=== PATIENT | female | born 1985 | race Caucasian/White ===

== ENCOUNTER 2017-05-24 20:50 | Emergency (ER) | payer SELFPAY ==
[2017-05-24] MEDS ORDERED: Azithromycin 250 MG Tab PO ONE (21:44)
[2017-05-24] MEDS ORDERED: cefTRIAXone 500 MG Vial IM ONE (21:44)
--- NOTE | 2017-05-24 22:03 | EDM.PDOC ---
ED HPI GENERAL MEDICAL PROBLEM - General Chief Complaint: Abdominal Pain Stated Complaint: ILLNESS Time Seen by Provider: 05/24/17 21:20 Source of Information: Reports: Patient History Limitations: Reports: No Limitations - History of Present Illness INITIAL COMMENTS - FREE TEXT/NARRATIVE: 32-year-old female who is just passing through [facility], on the run with her boyfriend who was arrested and put in prison, is in the emergency room to be checked for STDs. She found out a week ago that her boyfriend has had gonorrhea. She's had some vague but persistent lower abdominal discomfort, no fevers or chills, no nausea or vomiting. No new vaginal discharge, she says she "always has some". Onset: Unknown/Unsure Severity: Mild Associated Symptoms: Reports: Cough (Mild cough over the past several days) Lower Abdomen Pain Score (Numeric/FACES): 8 - Related Data Allergies Allergy/AdvReac Type Severity Reaction Status Date / Time aspirin Allergy Hives Verified 05/24/17 21:14 latex Allergy Hives Verified 05/24/17 21:14 Home Meds: Home Meds NK [No Known Home Meds] 05/24/17 [History] Past Medical History Respiratory History: Reports: Croup Gastrointestinal History: Reports: Other (See Below) Other Gastrointestinal History: elivated liver enzymes [employer] History: Reports: Musculoskeletal History: Reports: Back Pain, Chronic Psychiatric History: Reports: Addiction, Anxiety, Bipolar, Depression, Panic Attack, PTSD, Suicide Attempt Immunologic History: Reports: Other (See Below) Other Immunologic History: Hep C - Infectious Disease History Infectious Disease History: Reports: Chicken Pox, MRSA - Past Surgical History Female Surgical History: Reports: Tubal Ligation, Other (See Below) Other Female Surgeries/Procedures: cyst on ovary Social & Family History - Tobacco Use Smoking Status *Q: Current Every Day Smoker Years of Tobacco use: 20 Packs/Tins Daily: 0.5 Used Tobacco, but Quit: No Second Hand Smoke Exposure: Yes - Caffeine Use Caffeine Use: Reports: Soda - Recreational Drug Use Recreational Drug Use: Yes Drug Use in Last 12 Months: Yes Recreational Drug Type: Reports: Methamphetamine Recreational Drug Use Frequency: Weekly ED ROS GENERAL - Review of Systems Review Of Systems: See Below Constitutional: Denies: Fever, Chills, Malaise Respiratory: Reports: Cough. Denies: Shortness of Breath Cardiovascular: Denies: Chest Pain GI/Abdominal: Reports: Abdominal Pain. Denies: Nausea, Vomiting : Denies: Dysuria, Flank Pain Skin: Reports: No Symptoms Neurological: Denies: Headache ED EXAM, GENERAL - Physical Exam Exam: See Below Exam Limited By: No Limitations General Appearance: Alert, No Apparent Distress Eye Exam: Bilateral Eye: Normal Inspection Head: Atraumatic Respiratory/Chest: No Respiratory Distress GI/Abdominal: Normal Bowel Sounds, Soft, Non-Tender (Female) Exam: Normal External Exam, Adnexal Tenderness (She does have some adnexal and uterine tenderness to palpation), Other (Labs were taken for gonorrhea and chlamydia). No: Cervical Discharge, Cervical Fluid, Cervical Lesions Course - Vital Signs Last Recorded V/S: Last Vital Signs Temp 96.8 F 05/24/17 21:24 Pulse 119 H 05/24/17 21:24 Resp 16 05/24/17 21:24 BP 114/76 05/24/17 21:24 Pulse Ox 99 05/24/17 21:24 - Orders/Labs/Meds Orders: Active Orders 24 hr Category Date Time Status C TRACHOMATIS/N GONORRHOEA SDA [REF] Stat Lab 05/24/17 21:45 Received Meds: Medications Discontinued Medications Generic Name Dose Route Start Last Admin Trade Name Eliza PRN Reason Stop Dose Admin Azithromycin 1,000 mg 05/24/17 21:44 05/24/17 21:54 Zithromax PO 05/24/17 21:45 1,000 mg ONETIME ONE Administration Ceftriaxone Sodium 500 mg 05/24/17 21:44 05/24/17 22:00 Rocephin IM 05/24/17 21:45 500 mg ONETIME ONE Administration - Re-Assessments/Exams Free Text/Narrative Re-Assessment/Exam: 05/24/17 22:21 Gonorrhea and Chlamydia were sent to lab. Patient was given 500 mg of IM Rocephin along with 1000 mg of oral Zithromax. She will call for lab results in the next 72 hours, or return sooner if worsening or concerns. Departure - Departure Time of Disposition: 22:14 Disposition: Home, Self-Care 01 Condition: Good Clinical Impression: Abdominal pain Qualifiers: Abdominal location: lower abdomen, unspecified Qualified Code(s): R10.30 - Lower abdominal pain, unspecified - Discharge Information Instructions: Sexually Transmitted Disease, [id number] Referrals: PCP,None [Primary Care Provider] - Forms: ED Department Discharge Care Plan Goals: Results will be available in the next 72 hours. Recheck if worsening such as pain or fever. Find a primary provider that can follow your medical issues as soon as you are settled in an area. - My Orders Last 24 Hours: My Active Orders 05/24/17 21:45 C TRACHOMATIS/N GONORRHOEA SDA [REF] Stat - Assessment/Plan Last 24 Hours: My Active Orders 05/24/17 21:45 C TRACHOMATIS/N GONORRHOEA SDA [REF] Stat
== END 2017-05-24 22:14 | disposition home or self-care (01) ==
LOC: JP.ED 20:50
DX: R10.30 Lower abdominal pain, unspecified (principal); F17.210 Nicotine dependence, cigarettes, uncomplicated; Z88.6 Allergy status to analgesic agent; Z91.040 Latex allergy status
CPT/HCPCS: 87491; 87591; 96372; 99284; A9270; J0696; 36415